=== PATIENT | female | born 1975 | race Caucasian/White ===

== ENCOUNTER 2022-10-30 10:13 | Emergency (ER) | payer SELFPAY ==
[2022-10-30] MEDS ORDERED: DEXAMETHASONE 10 MG/ML VIAL PO STA (11:51)
[2022-10-30] MEDS ORDERED: CHERRY SYRUP 10 ML UDC PO ONE (11:51)
[2022-10-30] MEDS ORDERED: KETOROLAC 30 MG/ML VIAL IM STA (11:51)
--- NOTE | 2022-10-30 11:54 | ED Physician Documentation ---
PD HPI BACK PAIN - Stated complaint Stated Complaint: BACK/LEG PX - Chief complaint Chief Complaint: Back Pain - History obtained from History obtained from: Patient - History of Present Illness Timing - onset: Yesterday Timing - duration: Days (1) Timing - details: Abrupt onset, Still present Location: Lower, Right, Left Quality: Pain, Spasm, Sharp, Similar to prior episodes Associated symptoms: Numbness (tingling to left toes). No: Fever, Weakness, Incontinent of urine, Unable to urinate, Hematuria, Incontinent of stool Improves with: Rest, Position Worsened by: Movement, Palpation Contributing factors: Other (excessive activity yesterday " did what I usually do in 3 days in one day") Similar symptoms before: Diagnosis (back strain disc problem) Recently seen: Not recently seen - Additional information Additional information: 46-year-old Vicenta Samuel has a prior history of lumbar disc disease and she did excessive work today indicating that she had done usually what she does in 3 days she did in 1 day. She felt the onset of the pain last night she had a difficult time sleeping and she is coming to the emergency department today for treatment. She has pain in the lower back radiating down both legs worse on the left leg. Review of Systems Constitutional: denies: Fever Respiratory: denies: Cough GI: denies: Vomiting, Diarrhea Skin: denies: Rash Musculoskeletal: reports: Back pain. denies: Neck pain PD PAST MEDICAL HISTORY - Present Medications Home Medications: Ambulatory Orders Medication Instructions Recorded Confirmed Cyclobenzaprine [Flexeril] 10 mg PO TID PRN #20 tablet 10/30/22 HYDROcod/ACETAM 5/325 [Keystone 5/325] 1 - 2 tablet PO Q6H PRN #14 tablet 10/30/22 - Allergies Allergies/Adverse Reactions: Allergies Allergy/AdvReac Type Severity Reaction Status Date / Time aspirin Allergy Hives Verified 10/30/22 10:21 succinylcholine Allergy Unknown Verified 10/30/22 10:21 PD ED PE NORMAL - Vitals Vital signs reviewed: Yes (Hypertensive mild) - General General: Alert and oriented X 3, No acute distress, Well developed/nourished - HEENT HEENT: Atraumatic, PERRL, EOMI - Neck Neck: Supple, no meningeal sign - Respiratory Respiratory: No respiratory distress - Back Back: No CVA TTP, No spinal TTP, Other (Mild paraspinous muscle point tenderness bilaterally extending to the sciatic notch worse on the left than the right) - Derm Derm: Normal color, Warm and dry, No rash - Extremities Extremities: No deformity, No edema - Neuro Neuro: Alert and oriented X 3, cover operator 2-12 intact, No motor deficit (Good dorsiflexion bilaterally), No sensory deficit, Normal speech Eye Opening: Spontaneous Motor: Obeys Commands Verbal: Oriented GCS Score: 15 - Psych Psych: Normal mood, Normal affect Results - Vitals Vitals: Vital Signs - 24 hr 10/30/22 10/30/22 10:16 12:10 Temperature 36.6 C Heart Rate 85 80 Respiratory 16 18 Rate Blood Pressure 147/82 H 141/78 H O2 Saturation 99 98 Oxygen O2 Source Room air PD Medical Decision Making - ED course Complexity details: considered differential, d/w patient ED course: 46-year-old female with a prior history of sciatica has sciatica today and she is given 10 mg of dexamethasone and 30 mg of Toradol IM. We will place on a short course of pain medication muscle relaxant and referred to clinic for follow-up as needed Departure - Departure Disposition: 01 Home, Self Care Clinical Impression: Sciatica Qualifiers: Laterality: left Qualified Code(s): M54.32 - Sciatica, left side Condition: Stable Instructions: ED Sciatica Follow-Up: [facility] [Provider Group] Prescriptions: Cyclobenzaprine [Flexeril] 10 mg PO TID PRN #20 tablet PRN Reason: Spasms HYDROcod/ACETAM 5/325 [Keystone 5/325] 1 - 2 tablet PO Q6H PRN #14 tablet PRN Reason: Pain Comments: Vicenta, today looks like you have a pinched nerve in your back and we have given you a steroid to reduce the swelling and an anti-inflammatory for pain relief. In addition there is some pain medication and muscle relaxant that I have E scribed to the [facility] in [place]. Our expectation with treatment is resolution in 2 to 5 days. I have given you a number of a clinic to follow-up with as needed. Forms: Activity restrictions Discharge Date/Time: 10/30/22 12:12
[2022-10-30 12:13] VITALS: BP 141/78
== END 2022-10-30 12:12 | disposition home or self-care (01) ==
LOC: ED 10:13
DX: M54.32 Sciatica, left side (principal)
CPT/HCPCS: 96372; 99282; 99283; A9270